=== PATIENT | male | born 1990 | race Asian ===

== ENCOUNTER 2021-03-24 00:22 | Emergency (ER) | payer OTHER ==
[~2021-03-24] VITALS: Ht 170.2 cm; Wt 74.8 kg
[2021-03-24] MEDS ORDERED: LIDOCAINE HCL 1% LOCAL INJ 20 ML VIAL ONE (01:30)
[2021-03-24] MEDS ORDERED: KEFLEX125 MG/5 M PO (02:01)
[2021-03-24] MEDS ORDERED: NAPROSYN500 MG PO (02:01)
[2021-03-24] MEDS ORDERED: IBUPROFEN 400 MG TAB ONE (02:38)
[2021-03-24 03:00] VITALS: BP 128/64
== END 2021-03-24 03:02 | disposition home or self-care (01) ==
LOC: FSED 01:11
DX: S62.633A Displaced fracture of distal phalanx of left middle finger, initial encounter for closed fracture (principal); W23.1XXA Caught, crushed, jammed, or pinched between stationary objects, initial encounter; Y99.0 Civilian activity done for income or pay
CPT/HCPCS: 99283; J2001